=== PATIENT | female | born 1970 | race Caucasian/White ===

== ENCOUNTER 2019-06-16 20:12 | Emergency (ER) | payer OTHER, MEDICARE ==
--- NOTE | 2019-06-16 20:46 | ER Document Report ---
ED Respiratory Problem - General Chief Complaint: Shortness Of Breath Stated Complaint: SHORTNESS OF BREATH,WEAKNESS Time Seen by Provider: 06/16/19 20:45 Mode of Arrival: Ambulatory Information source: Patient, Relative Notes: HISTORY OF PRESENT ILLNESS: Patient4 is a 48-year-old female with a past medical history of pretension, scleroderma, Raynaud's syndrome, esophageal dysmotility status post multiple esophageal dilations, and pulmonary fibrosis who presents with sore throat and difficulty swallowing for the past 2 to 3 days. Patient denies fevers or chills, denies shortness of breath above her baseline. She reports she has had multiple esophageal dilations but this feels different and is burning in nature. Location: Throat Onset: 2 to 3 days ago Alleviation: None Provocation: None Quality: None Radiation: None Severity: Mild to moderate Timing: Constant History of abdominal surgery: None Associated symptoms: Mild nausea and one episode of vomiting that was nonbloody and nonbilious, no chest pain Last bowel movement: Today and normal REVIEW OF SYSTEMS: CONSTITUTIONAL : Denies fever or chills, no sweats. Denies recent illness. EENT: Positive for sore throat and dysphagia. Denies nasal or sinus congestion. CARDIOVASCULAR: Denies chest pain. Denies swelling of the legs. RESPIRATORY: Denies cough, cold, or chest congestion. Denies shortness of breath or difficulty breathing. Denies wheezing. GASTROINTESTINAL: Denies abdominal pain. Positive for one episode of vomiting. Denies constipation. GENITOURINARY: Denies difficulty urinating, painful urination, burning, frequency, or blood in urine. FEMALE GENITOURINARY: Denies vaginal bleeding, abnormal or irregular periods. MUSCULOSKELETAL: Denies neck or back pain or joint pain or swelling. SKIN: Denies rash or skin lesions. HEMATOLOGIC : Denies easy bruising or bleeding. LYMPHATIC: Denies swollen, enlarged glands. NEUROLOGICAL: Denies altered mental status or loss of consciousness. Denies headache. Denies weakness or paralysis or loss of use of either side. Denies problems with gait or speech. Denies sensory or motor loss. PSYCHIATRIC: Denies anxiety or stress or depression. All other systems reviewed and negative. PHYSICAL EXAMINATION: GENERAL: Well-appearing, well-nourished and in no acute distress. HEAD: Atraumatic, normocephalic. No scalp deformity, depression, or crepitance. EYES: Pupils are 3 mm and equal/round/reactive to light, extraocular movements intact, sclera anicteric, conjunctiva are normal. ENT: Nares patent bilaterally, severely erythematous oropharynx lesion or plaques. Moist mucous membranes. No tonsil hypertrophy. NECK: Normal range of motion, supple without lymphadenopathy. LUNGS: Breath sounds present, equal, and clear to auscultation bilaterally. No wheezes, rales, or rhonchi. HEART: Regular rate and rhythm without murmurs, rubs, or gallops. 2+ peripheral pulses. Normal capillary refill. ABDOMEN: Soft, nontender, nondistended. Normoactive bowel sounds. No guarding, no rebound. No masses appreciated. BACK: Normal contour, no midline tenderness. Rectal exam deferred. GENITAL/PELVIC: Deferred. EXTREMITIES: Normal range of motion, no pitting or edema. No cyanosis. NEUROLOGICAL: No focal neurological deficits. Moves all extremities spontaneously and on command. PSYCH: Normal mood, normal affect. No suicidal thoughts/ideations. No homicidal thoughts/ideations. No hallucinations. SKIN: Warm, dry, normal turgor, no rashes or lesions noted. ASSESSMENT AND PLAN: This patient is a 48-year-old female who presents with sore throat and baseline shortness of breath, most likely consistent with developing esophagitis. 1. Will obtain labs, chest x-ray, and reassess. 2. Will obtain throat culture from sputum, after which patient will be given GI cocktail. TRAVEL OUTSIDE OF THE [place] IN LAST 30 DAYS: No - HPI Patient complains to provider of: Short of breath Onset: Yesterday Duration: Continuous Quality of pain: Burning Severity: Mild Pain Level: 1 Context: Other - History of pulmonary fibrosis Short of Breath: Moderate Sputum amount: None Associated symptoms: Other - Dysphagia Similar symptoms previously: No Recently seen / treated by doctor: No - Related Data Allergies/Adverse Reactions: acetaminophen [From Vicodin] Allergy (Verified 06/16/19 20:47) hydrocodone [From Vicodin] Allergy (Verified 06/16/19 20:47) hydromorphone [From Dilaudid] Allergy (Verified 06/16/19 20:47) meperidine [From Demerol] Allergy (Verified 06/16/19 20:47) Past Medical History - General Information source: Patient, Relative - Social History Smoking Status: Never Smoker Chew tobacco use (# tins/day): No Frequency of alcohol use: None Drug Abuse: None Lives with: Family Family History: Reviewed & Not Pertinent Patient has suicidal ideation: No Patient has homicidal ideation: No - Past Medical History Cardiac Medical History: Reports: Hx Hypertension Pulmonary Medical History: Reports: Other - History of pulmonary fibrosis EENT Medical History: Reports: Other - History of esophageal dysmotility Neurological Medical History: Reports: None Endocrine Medical History: Reports: None Renal/ Medical History: Reports: None Malignancy Medical History: Reports: None GI Medical History: Reports: Hx Gastroesophageal Reflux Disease, Hx Endoscopy Musculoskeletal Medical History: Reports None Skin Medical History: Reports Other - History of scleroderma Psychiatric Medical History: Reports: None Traumatic Medical History: Reports: None Infectious Medical History: Reports: None Surgical Hx: Negative Past Surgical History: Reports: None - Immunizations Immunizations up to date: Yes Hx Diphtheria, Pertussis, Tetanus Vaccination: Yes Review of Systems - Review of Systems Constitutional: No symptoms reported EENT: See HPI, Throat pain Cardiovascular: No symptoms reported Respiratory: See HPI, Short of breath Gastrointestinal: See HPI, Nausea, Vomiting Genitourinary: No symptoms reported Female Genitourinary: No symptoms reported Musculoskeletal: No symptoms reported Skin: No symptoms reported Hematologic/Lymphatic: No symptoms reported Neurological/Psychological: No symptoms reported -: Yes All other systems reviewed and negative Physical Exam - Vital signs Vitals: Temp Pulse Resp BP Pulse Ox 97.9 F 93 20 107/72 94 06/16/19 20:21 06/16/19 20:21 06/16/19 20:21 06/16/19 20:21 06/16/19 20:21 Interpretation: Normal Course - Re-evaluation Re-evalutation: 06/16/19 23:10 Blood work as at the patient's baseline. Chest x-ray is also at her baseline. Will discharge the patient home with strict return precautions and follow-up with primary care. All results were explained to and discussed with the patient, and all questions addressed and answered. The patient voices both understanding and agreeing with the plan. - Vital Signs Vital signs: Temp Pulse Resp BP Pulse Ox 97.9 F 93 20 127/82 H 100 06/16/19 20:21 06/16/19 20:21 06/16/19 20:21 06/16/19 20:53 06/16/19 20:53 - Laboratory Result Diagrams: 06/16/19 20:49 06/16/19 20:49 Laboratory results interpreted by me: 06/16/19 06/16/19 20:49 20:49 WBC 13.8 H RDW 14.2 H Lymph % (Auto) 12.9 L Absolute Neuts (auto) 10.1 H Absolute Eos (auto) 0.7 H Alkaline Phosphatase 148 H - Diagnostic Test Radiology reviewed: Image reviewed, Reports reviewed Discharge - Discharge Clinical Impression: Esophagitis Condition: Good Disposition: HOME, SELF-CARE Instructions: Esophagitis ([facility]) Additional Instructions: You have been evaluated in the Emergency Department for having a sore throat and difficulty swallowing. While here, you had blood work that was normal and it is now safe to be discharged home. Please follow-up with your primary physician as well as your provider relations advocate as instructed in one week to be rechecked. Return to the Emergency Department if you experience the inability to swallow, uncontrollable vomiting, chest pain, difficulty breathing above your baseline, or any other concerning symptoms. Prescriptions: Amox Tr/Potassium Clavulanate [Augmentin 400-57 mg/5 mL Suspension] 5 ml PO TID #1 bottle Nystatin/Dexameth/Diphen [Magic Mouthwash ([facility] Formula) Susp] 5 ml PO QID #120 ml Print Language: Albanian
[2019-06-16 21:22] LABS: ABSOLUTE BASOPHILS # (AUTO) 0.1 10^3/uL (0.0-0.2); ABSOLUTE EOSINOPHILS # (AUTO) 0.7 10^3/uL (0.0-0.6); ABSOLUTE LYMPHOCYTES (AUTO) 1.8 10^3/uL (0.5-4.7); ABSOLUTE MONOCYTES (AUTO) 1.1 10^3/uL (0.1-1.4); ABSOLUTE NEUT (AUTO) 10.1 10^3/uL (1.7-8.2); BASOPHILS % (AUTO) 0.5 % (0-2); EOSINOPHILS % (AUTO) 5.3 % (0-6); HEMATOCRIT 41.4 % (36.0-47.0); HEMOGLOBIN 13.5 g/dL (12.0-15.5); LYMPHOCYTES % (AUTO) 12.9 % (13-45); MEAN CORPUSCULAR HEMOGLOBIN 28.2 pg (27.0-33.4); MEAN CORPUSCULAR HGB CONC 32.5 g/dL (32.0-36.0); MEAN CORPUSCULAR VOLUME 87 fl (80-97); MONOCYTES % (AUTO) 8.2 % (3-13); PLATELET COUNT 337 10^3/uL (150-450); RED BLOOD COUNT 4.77 10^6/uL (3.72-5.28); RED CELL DISTRIBUTION WIDTH 14.2 % (11.5-14.0); SEGMENTED NEUTROPHILS % (AUTO) 73.1 % (42-78); TOTAL CELLS COUNTED % (AUTO) 100 %; WHITE BLOOD COUNT 13.8 10^3/uL (4.0-10.5)
[2019-06-16 21:24] LABS: ALBUMIN 4.5 g/dL (3.5-5.0); ALKALINE PHOSPHATASE 148 U/L (38-126); ANION GAP 11 (5-19); ASPARTATE AMINO TRANSFERASE 26 U/L (14-36); BILIRUBIN,DIRECT 0.2 mg/dL (0.0-0.4); BILIRUBIN,TOTAL 0.5 mg/dL (0.2-1.3); BLOOD UREA NITROGEN 10 mg/dL (7-20); CALCIUM 9.6 mg/dL (8.4-10.2); CARBON DIOXIDE 26 mmol/L (22-30); CHLORIDE 102 mmol/L (98-107); GLUCOSE 110 mg/dL (75-110); POTASSIUM 4.1 mmol/L (3.6-5.0); TOTAL PROTEIN 8.2 g/dL (6.3-8.2)
--- NOTE | 2019-06-16 21:38 | RADIOLOGY REPORT (SQ) ---
EXAM DESCRIPTION: XR CHEST 1 VIEW COMPLETED DATE/TME: 06/16/2019 21:00 CLINICAL HISTORY: 48 years Female Cough COMPARISON: 08/23/2016. FINDINGS: Cardiac size appears within normal limits. There is some volume loss in the right chest with shift of the heart and mediastinal structures toward the right. Elevation the right hemidiaphragm. Peripheral interstitial infiltrates are present in the upper lobes and lateral lung bases . These changes were present on the patient's previous exam consistent with chronic interstitial lung disease. There is some widening of the superior mediastinum on the right which is also unchanged the previous study. IMPRESSION: No interval change in the appearance of the chest Interstitial infiltrates bilaterally likely reflecting chronic interstitial infiltrate. Degree of superimposed acute infiltrate cannot be entirely excluded
[2019-06-16] MEDS ORDERED: METOCLOPRAMIDE HCL ORAL SOLN 10 MG/10 ML UDCUP PO ONE (23:10)
[2019-06-16] MEDS ORDERED: MAG HYDROX/AL HYDROX/SIMETH SUSP 30 ML UDCUP PO ONE (23:10)
[2019-06-16] MEDS ORDERED: LIDOCAINE 2% VISCOUS SOLN 20 ML UDCUP PO ONE (23:10)
[2019-06-17 00:06] VITALS: BP 115/70
--- NOTE | 2019-06-17 21:47 | EKG REPORT ---
SEVERITY:- ABNORMAL ECG - SINUS RHYTHM BRAYAN, CONSIDER BIATRIAL ABNORMALITIES PROBABLE LEFT VENTRICULAR HYPERTROPHY : Confirmed by: Mily Miranda MD 17-Jun-2019 21:46:55
== END 2019-06-17 00:06 | disposition home or self-care (01) ==
LOC: ER 20:12
DX: K20.9 Esophagitis, unspecified (principal); J02.9 Acute pharyngitis, unspecified; R13.10 Dysphagia, unspecified; I10 Essential (primary) hypertension; R06.02 Shortness of breath; R11.2 Nausea with vomiting, unspecified; Z98.890 Other specified postprocedural states; Z88.5 Allergy status to narcotic agent; Z88.8 Allergy status to other drugs, medicaments and biological substances
CPT/HCPCS: 93005; 99284; 36415; 87070; 85025; 80053; 84484; 71045; 93010; J3490